=== PATIENT | male | born 1940 | race Caucasian/White ===

== ENCOUNTER → 2016-06-04 | Outpatient (CLI) | payer MEDICARE, BC ==
[2016-06-04 07:57] LABS: ALT 22 U/L (21-72); AST 31 U/L (17-59); Alkaline Phosphatase 88 U/L (38-126); Anion Gap 6 mmol/L; Blood Urea Nitrogen 28 mg/dL (9-20); Calcium 9.2 mg/dL (8.4-10.2); Carbon Dioxide 34 mmol/L (22-30); Chloride 102 mmol/L (98-107); Cholesterol 154 mg/dL (<200); Glucose 86 mg/dL (74-99); HDL Cholesterol 76 mg/dL (40-60); Non-African American GFR(MDRD) >60 (>60 ml/min/1.73 sqM); Potassium 4.5 mmol/L (3.5-5.1); Sodium 142 mmol/L (137-145); Total Bilirubin 0.7 mg/dL (0.2-1.3); Total Protein 6.8 g/dL (6.3-8.2); Triglycerides 65 mg/dL (<150)
== END | disposition home or self-care (01) ==
LOC: LABWHC1 07:05
PROVIDERS: ATTEND Internal Medicine Interventional Cardiology
DX: E78.2 Mixed hyperlipidemia (principal)
CPT/HCPCS: 36415; 80053; 80061

== ENCOUNTER → 2016-08-16 | Outpatient (CLI) | payer MEDICARE, BC ==
--- NOTE | 2016-08-17 00:22 | MR ---
EXAMINATION TYPE: MR cervical spine wo con DATE OF EXAM: 08/16/2016 COMPARISON: NONE HISTORY: Pain, Weakness in left arm and fingers TECHNIQUE: Multiplanar, multisequence images of the cervical spine were acquired. The vertebra have normal alignment. There is narrowing of disc spaces throughout the cervical spine w ith decreased signal. There are small posterior cervical disc herniations at C4-5 C5-6 C6-7. The gin l is narrowed to 8 mm at C6 level. The canal is narrowed to 7 mm at C4-5. Cervical spinal cord shows no edema. Brainstem appears intact. There is no compression fracture. There is mild multilevel hypert rophic facet arthropathy. There is no sign of cervical paraspinal mass. IMPRESSION: Multilevel spondylosis. Small posterior disc herniations from C4 to C7. Mild spinal stenosis as above .
== END | disposition home or self-care (01) ==
LOC: RADMRIMAIN 15:44
PROVIDERS: ATTEND Psychiatry & Neurology Neurology
DX: M48.02 Spinal stenosis, cervical region (principal); M50.123 Cervical disc disorder at C6-C7 level with radiculopathy; M47.22 Other spondylosis with radiculopathy, cervical region
CPT/HCPCS: 72141

== ENCOUNTER → 2016-11-22 | Outpatient (CLI) | payer MEDICARE, BC ==
[2016-11-22 08:02] LABS: Anisocytosis Slight; Basophils % (A) 0 %; CH 31.3; CHCM 32.4; Eosinophils # (A) 0.1 k/uL (0-0.7); Eosinophils % (A) 2 %; HCT 41.9 % (39.0-53.0); HDW 2.89; Luc # (Auto) 0.28; Luc % (Auto) 4; Lymphocytes # (A) 0.8 k/uL (1.0-4.8); Lymphocytes % (A) 12 %; MCHC 30.9 g/dL (31.0-37.0); MCV 97.1 fL (80.0-100.0); Macrocytosis Slight; Mean Platelet Volume 7.4; Monocytes # (A) 0.7 k/uL (0-1.0); Monocytes % (A) 10 %; Neutrophils # (A) 4.9 k/uL (1.3-7.7); Neutrophils % (A) 72 %; RBC 4.32 m/uL (4.30-5.90); RDW 17.1 % (11.5-15.5); WBC 6.8 k/uL (3.8-10.6); WBC (Perox) 7.63
[2016-11-22 08:24] LABS: ALT 38 U/L (21-72); AST 32 U/L (17-59); Alkaline Phosphatase 86 U/L (38-126); Anion Gap 11 mmol/L; Blood Urea Nitrogen 33 mg/dL (9-20); Calcium 9.4 mg/dL (8.4-10.2); Carbon Dioxide 29 mmol/L (22-30); Chloride 101 mmol/L (98-107); Cholesterol 160 mg/dL (<200); Glucose 82 mg/dL (74-99); HDL Cholesterol 68 mg/dL (40-60); Non-African American GFR(MDRD) 50 (>60 ml/min/1.73 sqM); Potassium 4.2 mmol/L (3.5-5.1); Sodium 141 mmol/L (137-145); Total Bilirubin 0.4 mg/dL (0.2-1.3); Total Protein 6.6 g/dL (6.3-8.2)
[2016-11-22 12:27] LABS: Hemoglobin A1C 5.9 % (4.2-6.1)
== END | disposition home or self-care (01) ==
LOC: LABWHC1 07:09
PROVIDERS: ATTEND Internal Medicine Interventional Cardiology
DX: Z00.00 Encounter for general adult medical examination without abnormal findings (principal); E78.2 Mixed hyperlipidemia; I48.91 Unspecified atrial fibrillation; T81.8 Other complications of procedures, not elsewhere classified; I25.10 Atherosclerotic heart disease of native coronary artery without angina pectoris
CPT/HCPCS: 36415; 80053; 80061; 83036; 84439; 84443; 85025

== ENCOUNTER 2016-11-23 07:40 | Inpatient (IN) | payer MEDICARE, BC ==
[2016-11-23] MEDS ORDERED: NITROGLYCERIN OINT 1 INCH/GM PACKET TOPICAL STA (08:10)
[2016-11-23] MEDS ORDERED: ASPIRIN 81 MG PO STA (08:10)
[2016-11-23 08:26] LABS: Anisocytosis Slight; Basophils % (A) 0 %; CH 30.9; CHCM 32.1; Eosinophils # (A) 0.1 k/uL (0-0.7); Eosinophils % (A) 2 %; HCT 40.7 % (39.0-53.0); Hypochromasia Slight; Luc # (Auto) 0.25; Luc % (Auto) 4; Lymphocytes # (A) 0.8 k/uL (1.0-4.8); Lymphocytes % (A) 12 %; MCH 30.8 pg (25.0-35.0); MCHC 31.8 g/dL (31.0-37.0); MCV 96.8 fL (80.0-100.0); Mean Platelet Volume 6.9; Monocytes # (A) 0.6 k/uL (0-1.0); Monocytes % (A) 10 %; Neutrophils # (A) 4.8 k/uL (1.3-7.7); Neutrophils % (A) 73 %; RBC 4.21 m/uL (4.30-5.90); RDW 16.2 % (11.5-15.5); WBC 6.6 k/uL (3.8-10.6); WBC (Perox) 6.85
--- NOTE | 2016-11-23 08:28 | ED ---
General Adult HPI - General Chief complaint: Chest Pain Stated complaint: Chest pain Time Seen by Provider: 11/23/16 07:40 Source: patient, RN notes reviewed Mode of arrival: wheelchair Limitations: no limitations - History of Present Illness Initial comments: This is a 76 her old male presents emergency Department with a past medical history significant for an open wound on the right chest wall since 2007 secondary to a procedure to remove a nodule. Patient has a past medical history significant for hypertension and high cholesterol. Patient comes to the emergency department complaining of chest pain which started last evening right around bedtime he states he comes in waves comes on strong last for a few minutes and then goes away. Patient states is no associated symptoms. Patient denies any radiation of the pain to the neck back or arm. Patient denies any diaphoresis. Patient denies any nausea. Patient denies any shortness of breath or difficulty breathing with the pain. Patient states it did seem to get worse when he got up and walked around but it also did occur at rest as well. Patient denies any recent fever chills or cough. Patient denies any abdominal pain patient denies nausea vomiting or diarrhea. - Related Data Home Medications Medication Instructions Recorded Confirmed Folic Acid 1 mg PO DAILY 01/20/14 11/23/16 Pantoprazole Sodium [Protonix] 40 mg PO QAM 01/20/14 11/23/16 predniSONE 10 mg PO DAILY 01/20/14 11/23/16 Pravastatin Sodium [Pravachol] 40 mg PO DAILY 08/05/14 11/23/16 Albuterol Inhaler [Ventolin Hfa 1 - 2 puff INHALATION RT-Q6H PRN 11/23/16 Inhaler] Ciprofloxacin HCl [Cipro] 250 mg PO Q12HR 11/23/16 11/23/16 Gabapentin [Neurontin] 100 mg PO TID 11/23/16 11/23/16 Lutein 10 mg PO DAILY 11/23/16 11/23/16 Metoprolol Tartrate [Lopressor] 25 mg PO DAILY 11/23/16 11/23/16 Tofacitinib Citrate [Xeljanz Xr] 11 mg PO DAILY 11/23/16 11/23/16 Allergies Allergy/AdvReac Type Severity Reaction Status Date / Time adalimumab [From Humira] Allergy severe flu Verified 11/23/16 08:24 like symptoms etanercept [From Enbrel] Allergy severe flu Verified 11/23/16 08:24 like symptoms inhaler Allergy Rash/Hives Uncoded 11/23/16 07:44 ADHESIVE TAPE AdvReac Unknown Uncoded 11/23/16 07:44 Review of Systems ROS Statement: Those systems with pertinent positive or pertinent negative responses have been documented in the HPI. ROS Other: All systems not noted in ROS Statement are negative. Past Medical History Past Medical History: COPD, Hyperlipidemia, Rheumatoid Arthritis (RA) Additional Past Medical History / Comment(s): Asbestosis, post surgical pneumothorax with a bronchopleural-cutaneous fistula in 2007 treated at [facility]-currently open and packs ns and guaze bid, current daily steroid History of Any Multi-Drug Resistant Organisms: None Reported Past Surgical History: Heart Catheterization, Heart Catheterization With Stent Additional Past Surgical History / Comment(s): lung surgrey and resection of a pulmonary nodule-benign, chest tube insertion with a talc pleurodesis, right lobectomy with complicated the bronco pleurocutaneous fistula, bilateral cataract surgery,left heel spur surgery. Past Anesthesia/Blood Transfusion Reactions: Motion Sickness Date of Last Stent Placement:: Past Psychological History: No Psychological Hx Reported Smoking Status: Never smoker - Past Family History Father Family Medical History: Cancer Additional Family Medical History / Comment(s): hodgkin Brother(s) Family Medical History: Cancer, Myocardial Infarction ([place]) Sister(s) Family Medical History: Cancer, Pulmonary Embolus Additional Family Medical History / Comment(s): ? pulmonay embolism Mother Family Medical History: CVA/TIA Additional Family Medical History / Comment(s): age 92 Son(s) Family Medical History: No Reported History Daughter(s) Family Medical History: No Reported History General Exam - General Exam Comments Initial Comments: GENERAL: Patient is well-developed and well-nourished. Patient is nontoxic and well- hydrated and is in mild distress. ENT: Neck is soft and supple. No significant lymphadenopathy is noted. Oropharynx is clear. Moist mucous membranes. Neck has full range of motion without eliciting any pain. EYES: The sclera were anicteric and conjunctiva were pink and moist. Extraocular movements were intact and pupils were equal round and reactive to light. Eyelids were unremarkable. PULMONARY: Unlabored respirations. Good breath sounds bilaterally. No audible rales rhonchi or wheezing was noted. CARDIOVASCULAR: There is a regular rate and rhythm without any murmurs gallops or rubs. Patient has a bandage on the right lateral chest wall which she states covers an open wound that is been there since 2007 ABDOMEN: Soft and nontender with normal bowel sounds. No palpable organomegaly was noted. There is no palpable pulsatile mass. SKIN: Skin is clear with no lesions or rashes and otherwise unremarkable. NEUROLOGIC: Patient is alert and oriented x3. Cranial nerves II through XII are grossly intact. Motor and sensory are also intact. Normal speech, volume and content. Symmetrical smile. MUSCULOSKELETAL: Normal extremities with adequate strength and full range of motion. No lower extremity swelling or edema. No calf tenderness. LYMPHATICS: No significant lymphadenopathy is noted PSYCHIATRIC: Normal psychiatric evaluation. Normal interpersonal interactions appears functionally intact in deals appropriately with others. No signs of depression. No signs of anxiety. Limitations: no limitations Course Vital Signs 11/23/16 11/23/16 11/23/16 07:41 08:06 08:36 Temperature 97.9 F Pulse Rate 104 H 92 81 Respiratory 20 18 18 Rate Blood Pressure 138/85 138/102 137/103 O2 Sat by Pulse 100 95 Oximetry 11/23/16 09:32 Temperature Pulse Rate 94 Respiratory 19 Rate Blood Pressure 148/99 O2 Sat by Pulse 94 L Oximetry Medical Decision Making - Medical Decision Making EKG shows atrial fibrillation 93 bpm QRS is 90 QT interval 368 QTC is 457. Patient's EKG shows no ST segment elevation I compared the EKG to an old EKG I see no acute abnormalities. Chest x-ray shows no acute abnormality. Patient does show chronic pleural parenchymal changes and underlying pulmonary fibrosis which is been seen previously. New. Patient's troponin was mildly elevated so started the patient on troponin. Patient continue to get episodes of chest pain while in the emergency department. I spoke with Dr. jolly he agreed to admit the patient admitted the patient I consult cardiology. I continued heparin Nitropaste and aspirin on the floor. - Lab Data Result diagrams: 11/23/16 08:00 11/23/16 08:00 Lab Results 11/23/16 11/23/16 11/23/16 Range/Units 08:00 08:00 08:00 WBC 6.6 (3.8-10.6) k/uL RBC 4.21 L (4.30-5.90) m/uL Hgb 13.0 (13.0-17.5) gm/dL Hct 40.7 (39.0-53.0) % MCV 96.8 (80.0-100.0) fL MCH 30.8 (25.0-35.0) pg MCHC 31.8 (31.0-37.0) g/dL RDW 16.2 H (11.5-15.5) % Plt Count 253 (150-450) k/uL Neutrophils % 73 % Lymphocytes % 12 % Monocytes % 10 % Eosinophils % 2 % Basophils % 0 % Neutrophils # 4.8 (1.3-7.7) k/uL Lymphocytes # 0.8 L (1.0-4.8) k/uL Monocytes # 0.6 (0-1.0) k/uL Eosinophils # 0.1 (0-0.7) k/uL Basophils # 0.0 (0-0.2) k/uL Hypochromasia Slight Anisocytosis Slight PT (9.0-12.0) sec INR (<1.2) APTT (22.0-30.0) sec Sodium 142 (137-145) mmol/L Potassium 4.2 (3.5-5.1) mmol/L Chloride 104 (98-107) mmol/L Carbon Dioxide 27 (22-30) mmol/L Anion Gap 11 mmol/L BUN 27 H (9-20) mg/dL Creatinine 1.16 (0.66-1.25) mg/dL Est GFR (MDRD) Af Amer >60 (>60 ml/min/1.73 sqM) Est GFR (MDRD) Non-Af >60 (>60 ml/min/1.73 sqM) Glucose 85 (74-99) mg/dL Calcium 9.1 (8.4-10.2) mg/dL Magnesium 2.1 (1.6-2.3) mg/dL Total Bilirubin 0.4 (0.2-1.3) mg/dL AST 30 (17-59) U/L ALT 33 (21-72) U/L Alkaline Phosphatase 82 (38-126) U/L Total Creatine Kinase 127 (55-170) U/L CK-MB (CK-2) 2.8 H* (0.0-2.4) ng/mL CK-MB (CK-2) Rel Index 2.2 Troponin I 0.079 H* (0.000-0.034) ng/mL Total Protein 6.3 (6.3-8.2) g/dL Albumin 3.3 L (3.5-5.0) g/dL 11/23/16 Range/Units 08:00 WBC (3.8-10.6) k/uL RBC (4.30-5.90) m/uL Hgb (13.0-17.5) gm/dL Hct (39.0-53.0) % MCV (80.0-100.0) fL MCH (25.0-35.0) pg MCHC (31.0-37.0) g/dL RDW (11.5-15.5) % Plt Count (150-450) k/uL Neutrophils % % Lymphocytes % % Monocytes % % Eosinophils % % Basophils % % Neutrophils # (1.3-7.7) k/uL Lymphocytes # (1.0-4.8) k/uL Monocytes # (0-1.0) k/uL Eosinophils # (0-0.7) k/uL Basophils # (0-0.2) k/uL Hypochromasia Anisocytosis PT 9.8 (9.0-12.0) sec INR 1.0 (<1.2) APTT 24.0 (22.0-30.0) sec Sodium (137-145) mmol/L Potassium (3.5-5.1) mmol/L Chloride (98-107) mmol/L Carbon Dioxide (22-30) mmol/L Anion Gap mmol/L BUN (9-20) mg/dL Creatinine (0.66-1.25) mg/dL Est GFR (MDRD) Af Amer (>60 ml/min/1.73 sqM) Est GFR (MDRD) Non-Af (>60 ml/min/1.73 sqM) Glucose (74-99) mg/dL Calcium (8.4-10.2) mg/dL Magnesium (1.6-2.3) mg/dL Total Bilirubin (0.2-1.3) mg/dL AST (17-59) U/L ALT (21-72) U/L Alkaline Phosphatase (38-126) U/L Total Creatine Kinase (55-170) U/L CK-MB (CK-2) (0.0-2.4) ng/mL CK-MB (CK-2) Rel Index Troponin I (0.000-0.034) ng/mL Total Protein (6.3-8.2) g/dL Albumin (3.5-5.0) g/dL Critical Care Time Critical Care Time: Yes Total Critical Care Time: 35 Disposition Clinical Impression: Unstable angina pectoris Disposition: ADMITTED IP TO THIS HOSP Referrals: Pipo Zhou MD [Primary Care Provider] - 1-2 days Time of Disposition: 09:34
[2016-11-23 08:30] LABS: ALT 33 U/L (21-72); AST 30 U/L (17-59); Alkaline Phosphatase 82 U/L (38-126); Anion Gap 11 mmol/L; Blood Urea Nitrogen 27 mg/dL (9-20); Calcium 9.1 mg/dL (8.4-10.2); Carbon Dioxide 27 mmol/L (22-30); Chloride 104 mmol/L (98-107); Glucose 85 mg/dL (74-99); Magnesium 2.1 mg/dL (1.6-2.3); Non-African American GFR(MDRD) >60 (>60 ml/min/1.73 sqM); Potassium 4.2 mmol/L (3.5-5.1); Sodium 142 mmol/L (137-145); Total Bilirubin 0.4 mg/dL (0.2-1.3); Total Protein 6.3 g/dL (6.3-8.2)
[2016-11-23 08:36] LABS: Prothrombin Time 9.8 sec (9.0-12.0)
--- NOTE | 2016-11-23 08:36 | XR ---
EXAMINATION TYPE: XR chest 2V DATE OF EXAM: 11/23/2016 COMPARISON: 11/21/2015 TECHNIQUE: PA and lateral views submitted. HISTORY: Chest pain FINDINGS: Coarsened interstitium seen with pleural-based thickening and areas of subsegmental consolidation or pleural effusion. Scoliotic curvature with degenerative changes spine. Stable right apical pleural-ba sed thickening. Arthropathy of the shoulders. Suggestion of small clips in the soft tissues along the right lateral chest wall. Previous surgery suggested. Vague nodularity left upper lobe likely relate d to pleural plaque. IMPRESSION: 1. Stable chronic pleural-parenchymal changes. Underlying pulmonary fibrosis suspected. Pleural plaqu e or asbestos related disease in the differential diagnosis. Could not exclude vague infiltrate in th e lingular segment left upper lobe. 2. 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
[2016-11-23 08:55] LABS: Creatine Kinase MB 2.8 ng/mL (0.0-2.4); Troponin I 0.079 ng/mL (0.000-0.034)
[2016-11-23] MEDS ORDERED: HEPARIN SODIUM,PORCINE 5,000 UNIT/ML 1 ML VIAL IV ONE (09:04)
[2016-11-23] MEDS ORDERED: SODIUM CHLORIDE 0.9% 1,000 ML IV SCH (09:15)
[2016-11-23] MEDS ORDERED: HEPARIN SODIUM,PORCINE/D5W PMX 25,000 UNIT in DEXTROSE/WATER 1 500ML.BAG IV SCH (09:15)
[2016-11-23] MEDS ORDERED: NITROGLYCERIN SL TABS 0.4 MG TAB SUBLINGUAL PRN (09:36)
[2016-11-23 10:31] VITALS: BMI 22.6
[2016-11-23] MEDS ORDERED: ALBUTEROL NEBULIZED 2.5 MG/3 ML INHALATION PRN (11:49)
--- NOTE | 2016-11-23 13:07 | P.PN ---
Progress Note - Text This is an addendum to the dictated cardiology consultation. The patient has a known history of CAD, post stenting of the RCA in 2015, history of paroxysmal atrial fibrillation, history of rheumatoid arthritis and rheumatoid lung with bronchopleural fistula who presents with symptoms of indigestion. He was noted to be in atrial fibrillation on presentation. He feels that the ingestion resolved. He has no change in his breathing pattern, has chronic mild to moderate dyspnea on exertion without any progression. In the past he could not tolerate anticoagulation because of bleeding from his fistula. His systolic function has been normal. On his physical examination he has no evidence of lung congestion and he is in atrial fibrillation. His troponin is minimally elevated and his EKG shows no acute ST segment changes. It is possible that the troponin abnormality is related to a type II event from the atrial fibrillation although the possibility of progression of disease cannot be excluded. I discussed with the patient both options of proceeding with coronary angiography versus observation pending the rest of his enzymes and his symptoms. He is in favor of observation. If he has any increase in his troponin or further symptoms then we will proceed with cardiac catheterization. In the meantime I will obtain an echocardiogram and depending on his progress further recommendations will be made. Thank you for this consult we will follow with you.
[2016-11-23] MEDS: CIPROFLOXACIN HCL 250 MG TAB PO SCH ×3 (14:00→21:22)
[2016-11-23] MEDS: METOPROLOL TARTRATE 25 MG TAB PO SCH ×2 (14:00→15:46)
[2016-11-23] MEDS: predniSONE 10 MG TAB PO SCH (14:00)
[2016-11-23] MEDS: NITROGLYCERIN OINT 1 INCH/GM PACKET TOPICAL SCH ×3 (14:01→23:28)
[2016-11-23 14:55] LABS: Creatine Kinase MB 2.7 ng/mL (0.0-2.4)
[2016-11-23] MEDS ORDERED: IPRATROPIUM-ALBUTEROL 3 ML NEB INHALATION PRN (14:55)
[2016-11-23 14:57] LABS: Troponin I 0.057 ng/mL (0.000-0.034)
--- NOTE | 2016-11-23 14:57 | P.HPIM ---
History of Present Illness H&P Date: 11/23/16 Chief Complaint: substernal chest pressure his is a 74-year-old gentleman one of Dr. Zhou with a previous medical history significant for long-standing rheumatoid arthritis currently on tofacitinib , prednisone , hyperlipidemia, chronic obstructive pulmonary disease , asbestos exposure, history of pulmonary nodule in the past status post right lobectomy at the 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 He was seen in [facility] May/2014 when he was found to have an atrial fibrillation with rapid ventricular response, he was found in an acute heart failure top of his chronic lung condition and Patient underwent cardiac cath and stent of RCA with Dr. Gibson on 06/08. Patient was found to be in atrial fibrillation and was started on amiodarone and well as heparin drip, bridged to coumadin is but patient started to have bleeding through the broncho-cutaneous fistula before discontinuing the anticoagulation. Patient was seen in the ED this time with complaints of central arm chest pressure feels like a heartburn, intubated and corrected nonradiating and not associated with worsening of his baseline shortness of breath. Patient denies any diaphoresis, denies any nausea. Patient states he does get short of breath what walking couple of steps but has been suffering from shortness of breath for many years. He does have atrial fibrillation but is not on anticoagulation due to the history of bleeding from the fistula. He was also treated for pneumonia with antibiotics and steroids a few weeks ago and her urinary tract infection following the pneumonia for which patient was taking ciprofloxacin. Patient also has an open broncho-cutaneous fistula which they dressed 2 times a day. Patient uses home oxygen on exertion. White count is elevated ED suggested a pulse rate of 104, blood pressure 138/85. EKG was done which suggested atrial fibrillation with no ST or T-wave changes. Chest x-ray O was positive for chronic pleural parenchymal changes and underlying pulmonary fibrosis from previous history of asbestosis exposure. Troponin was elevated. Patient was admitted for evaluation by cardiology for elevated troponin and history of coronary artery disease with stenting in the past. Review of Systems Constitutional: Reports fatigue, Denies anorexia, Denies chills, Denies fever, Denies poor appetite Eyes: denies bulging eye, denies diplopia Ears, nose, mouth and throat: Denies dental pain, Denies dysphagia, Denies epistaxis, Denies headache, Denies neck lump, Denies nose pain, Denies odynophagia, Denies post-nasal drip Cardiovascular: Reports decreased exercise tolerance, Reports irregular heart beat, Reports shortness of breath, Denies edema, Denies high blood pressure, Denies leg edema, Denies lightheadedness, Denies orthopnea, Denies paroxysmal nocturnal dyspnea Respiratory: Reports home oxygen, Denies cough, Denies cough with sputum Gastrointestinal: Denies abdominal pain, Denies bloating, Denies BRBPR, Denies change in bowel habits, Denies hematemesis, Denies hematochezia, Denies nausea, Denies vomiting Genitourinary: Denies nocturia, Denies urinary frequency, Denies urinary hesitancy Musculoskeletal: Denies low back pain, Denies muscle cramps Musculoskeletal: absent: ankle pain, ankle swelling, foot pain, hip swelling, knee swelling Integumentary: Denies rash, Denies unusual bruising, Denies wounds Neurological: Denies memory loss, Denies numbness, Denies paralysis, Denies paresthesias, Denies seizures, Denies tremors, Denies vertigo, Denies weakness Psychiatric: Denies anxiety, Denies depression, Denies hopelessness Endocrine: Reports palpitations, Denies fatigue, Denies flushing, Denies polyuria Past Medical History Past Medical History: COPD, Hyperlipidemia, Rheumatoid Arthritis (RA) Additional Past Medical History / Comment(s): Asbestosis, post surgical pneumothorax with a bronchopleural-cutaneous fistula in [address] [facility]-currently open and packs ns and guaze bid, current daily steroid History of Any Multi-Drug Resistant Organisms: None Reported Past Surgical History: Heart Catheterization, Heart Catheterization With Stent Additional Past Surgical History / Comment(s): lung surgrey and resection of a pulmonary nodule-benign, chest tube insertion with a talc pleurodesis, right lobectomy with complicated the bronco pleurocutaneous fistula, bilateral cataract surgery,left heel spur surgery. 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 - Past Family History Father Family Medical History: Cancer Additional Family Medical History / Comment(s): hodgkin Brother(s) Family Medical History: Cancer, Myocardial Infarction ([place]) Sister(s) Family Medical History: Cancer, Pulmonary Embolus Additional Family Medical History / Comment(s): ? pulmonay embolism Mother Family Medical History: CVA/TIA Additional Family Medical History / Comment(s): age 92 Son(s) Family Medical History: No Reported History Daughter(s) Family Medical History: No Reported History Medications and Allergies Home Medications Medication Instructions Recorded Confirmed Type Folic Acid 1 mg PO DAILY 01/20/14 11/23/16 History Pantoprazole Sodium [Protonix] 40 mg PO QAM 01/20/14 11/23/16 History predniSONE 10 mg PO DAILY 01/20/14 11/23/16 History Pravastatin Sodium [Pravachol] 40 mg PO DAILY 08/05/14 11/23/16 History Albuterol Inhaler [Ventolin Hfa 1 - 2 puff INHALATION RT-Q6H PRN 11/23/16 History Inhaler] Ciprofloxacin HCl [Cipro] 250 mg PO Q12HR 11/23/16 11/23/16 History Gabapentin [Neurontin] 100 mg PO TID 11/23/16 11/23/16 History Lutein 10 mg PO DAILY 11/23/16 11/23/16 History Metoprolol Tartrate [Lopressor] 25 mg PO DAILY 11/23/16 11/23/16 History Tofacitinib Citrate [Xeljanz Xr] 11 mg PO DAILY 11/23/16 11/23/16 History Allergies Allergy/AdvReac Type Severity Reaction Status Date / Time adalimumab [From Humira] Allergy severe flu Verified 11/23/16 08:24 like symptoms etanercept [From Enbrel] Allergy severe flu Verified 11/23/16 08:24 like symptoms inhaler Allergy Rash/Hives Uncoded 11/23/16 07:44 ADHESIVE TAPE AdvReac Unknown Uncoded 11/23/16 07:44 Physical Exam Vitals: Vital Signs Temp Pulse Pulse Resp BP BP Pulse Ox 11/23/16 12:00 91 20 11/23/16 11:57 96.9 F L 91 20 138/94 91 L 11/23/16 09:55 97.8 F 85 16 148/99 95 11/23/16 09:54 96.9 F L 97 20 138/94 92 L 11/23/16 09:32 94 19 148/99 94 L 11/23/16 08:36 81 18 137/103 95 11/23/16 08:06 92 18 138/102 100 11/23/16 07:41 97.9 F 104 H 20 138/85 Intake and Output 11/22/16 11/23/16 11/23/16 22:59 06:59 14:59 Intake Total 600 Balance 600 Intake: Intake, IV Titration 240 Amount Sodium Chloride 0.9% 1, 240 000 ml @ 20 mls/hr IV . Q24H [facility] Rx#:[id number] Oral 360 Other: Voiding Method Toilet Weight 71.5 kg Patient Weight 11/24/16 06:59 Weight 71.5 kg - Constitutional General appearance: average body habitus, mild distress - EENT Eyes: anicteric sclerae, EOMI, PERRLA ENT: normal oropharynx - Neck Neck: no lymphadenopathy, normal ROM Carotids: negative: upstroke normal - Respiratory Respiratory: bilateral: rhonchi, negative: CTA, diminished, dullness, rales, prolonged expiration, prolonged inspiration - Cardiovascular Rhythm: irregularly irregular Heart sounds: normal: S1, S2 dorsalis pedis Peripheral Pulses: absent: Normal - Gastrointestinal General gastrointestinal: no distended, normal bowel sounds, soft, no tenderness - Integumentary Integumentary: rash (bronchocutaneous fistla on the right side of the back below the scapular blade ) - Musculoskeletal Musculoskeletal: strength equal bilaterally - Psychiatric Psychiatric: A&O x's 3 Results CBC & Chem 7: 11/23/16 08:00 11/23/16 08:00 Labs: Abnormal Lab Results - Last 24 Hours (Table) 11/23/16 11/23/16 11/23/16 Range/Units 08:00 08:00 08:00 RBC 4.21 L (4.30-5.90) m/uL RDW 16.2 H (11.5-15.5) % Lymphocytes # 0.8 L (1.0-4.8) k/uL BUN 27 H (9-20) mg/dL CK-MB (CK-2) 2.8 H* (0.0-2.4) ng/mL Troponin I 0.079 H* (0.000-0.034) ng/mL Albumin 3.3 L (3.5-5.0) g/dL Thrombosis Risk Factor Assmnt - DVT/VTE Prophylaxis DVT/VTE Prophylaxis: Pharmacologic Prophylaxis ordered (on heparin drip ) - Choose All That Apply Each Factor Represents 1 point: Abnormal pulmonary function (COPD) Each Risk Factor Represents 3 Points: Age 75 years or older Thrombosis Risk Factor Assessment Total Risk Factor Score: 4 Thrombosis Risk Factor Assessment Level: Moderate Risk Assessment and Plan Plan: 1. Paroxysmal atrial fibrillation with rapid ventricular response, patient will be started on heparin drip, aspirin 81 mg orally once every day, continue metoprolol 25 mg orally once day, patient will need to be on chronic anticoagulation at this point in time for CVA prevention. We will get echocardiogram for evaluation of LV function, we will obtain cardiology consultation 2. Troponin leak thought to be due to A. fib with rapid ventricular response, we will keep the patient on aspirin, pravastatin 40 mg orally at bedtime, metoprolol 25 mg orally once a day , we will obtain 2-D echogram to evaluate LV function at this time. History of RCA stent in 2014 if patient's troponin continues to rise stated patient is going to get cardiac catheterization done tomorrow morning keep patient nothing by mouth after midnight for possible procedure tomorrow. Troponin every 63, 3. Long standing history of rheumatoid arthritis since 2006 currently on immunosuppressive medicines in the form of tofacitinib, prednisone, with a possibility of opportunistic infection as well as rheumatic lung, continue ciprofloxacin 250 mg twice a day as outpatient treatment was stopped 4. History of hyperlipidemia we will continue the patient on Pravachol 40 mg orally at bedtime. 5. History of chronic obstructive pulmonary disease/asbestos exposure we will continue current nebulized treatment . 6. History of the pulmonary nodule in the past status post right lobectomy with complicating bronchopleural cutaneous fistula appears to be stable at this time. 7. History of urinary tract infection- patient on ciprofloxacin for possible urinary infection continue treatment urinalysis ordered. If urine is clear, we' ll discontinue the antibiotics 7. GI prophylaxis will continue with current PPI. 8. DVT prophylaxis currently on heparin drip 9. Assessment length of stay 3 days.
[2016-11-23 15:39] LABS: Appearance,Urine Clear (Clear); Bilirubin,Urine Negative (Negative); Glucose,Urine (UA) Negative (Negative); Ketones,Urine Negative (Negative); Leukocyte Esterase,Urine Large (Negative); Mucus,Urine Rare /hpf; Nitrite,Urine Negative (Negative); PH, Urine 5.5 (5.0-8.0); Particle Count 3108; Protein,Urine Trace (Negative); RBC,Urine 1 /hpf (0-5); Specific Gravity,Urine 1.019 (1.001-1.035); Squamous Epithelial Cell,Urine <1 /hpf (0-4); UA Billing (MACRO vs. MICRO) MICRO; Urobilinogen,Urine <2.0 mg/dL (<2.0); WBC,Urine 17 /hpf (0-5)
[2016-11-23] MEDS: GABAPENTIN 100 MG CAP PO SCH ×2 (15:46→21:18)
--- NOTE | 2016-11-23 16:23 | ECHOF ---
Referral Reason:chest pain MEASUREMENTS -------- HEIGHT: 180.3 cm WEIGHT: 71.2 kg BP: 105/75 IVSd: 1.3 cm (0.6 - 1.1) LVIDd: 3.3 cm (3.9 - 5.3) LVPWd: 1.4 cm (0.6 - 1.1) IVSs: 1.6 cm LVIDs: 2.6 cm LVPWs: 1.5 cm Ao Diam: 3.0 cm (2.0 - 3.7) AV Cusp: 0.8 cm (1.5 - 2.6) LA Diam: 4.0 cm (2.7 - 3.8) RAP: 5.00 mmHg RVSP: 33.01 mmHg FINDINGS -------- Atrial fibrillation. This was a technically good study. The left ventricular size is normal. There is mild concentric left ventricular hypertrophy. Overall left ventricular systolic function is normal with, an EF between 55 - 60 %. The right ventricle is normal in size and function. The left atrial size is normal. The right atrium is normal in size. Aortic valve is trileaflet and is moderately thickened. There is mild aortic valve sclerosis. The mitral valve leaflets are mildly thickened. Mild mitral regurgitation is present. Mild tricuspid regurgitation present. The right ventricular systolic pressure, as measured by Doppler, is 33.01mmHg. Pulmonic valve appears structurally normal. The aortic root size is normal. The pericardium is normal. CONCLUSIONS -------- 1. Atrial fibrillation. 2. There is mild aortic valve sclerosis. 3. The mitral valve leaflets are mildly thickened. 4. Mild mitral regurgitation is present. 5. Mild tricuspid regurgitation present. 6. The right ventricular systolic pressure, as measured by Doppler, is 33.01mmHg. 7. Pulmonic valve appears structurally normal. 8. The aortic root size is normal. 9. The pericardium is normal. 10. This was a technically good study. 11. The left ventricular size is normal. 12. There is mild concentric left ventricular hypertrophy. 13. Overall left ventricular systolic function is normal with, an EF between 55 - 60 %. 14. The right ventricle is normal in size and function. 15. The left atrial size is normal. 16. The right atrium is normal in size. 17. Aortic valve is trileaflet and is moderately thickened. FIREBOAT OPERATOR: Rika Tineo RDCS
[2016-11-23] MEDS ORDERED: ACETAMINOPHEN TAB 325 MG TAB PO PRN (20:40)
[2016-11-23 20:49] LABS: Creatine Kinase MB 2.3 ng/mL (0.0-2.4)
[2016-11-23 20:50] LABS: Troponin I 0.038 ng/mL (0.000-0.034)
[2016-11-23] MEDS ORDERED: PRAVASTATIN SODIUM 40 MG TAB PO SCH (21:00)
[2016-11-24] MEDS: NITROGLYCERIN OINT 1 INCH/GM PACKET TOPICAL SCH (06:08)
[2016-11-24 07:00] LABS: Cholesterol 147 mg/dL (<200); HDL Cholesterol 64 mg/dL (40-60)
[2016-11-24] MEDS: GABAPENTIN 100 MG CAP PO SCH ×2 (07:38→13:34)
[2016-11-24] MEDS: METOPROLOL TARTRATE 25 MG TAB PO SCH (07:39)
[2016-11-24] MEDS: CIPROFLOXACIN HCL 250 MG TAB PO SCH (07:39)
[2016-11-24] MEDS: predniSONE 10 MG TAB PO SCH (07:39)
[2016-11-24] MEDS ORDERED: ASPIRIN 81 MG PO SCH (09:00)
[2016-11-24] MEDS ORDERED: ASPIRIN 325 MG TAB PO SCH (09:00)
[2016-11-24] MEDS ORDERED: PANTOPRAZOLE 40 MG TABLET PO SCH (09:00)
[2016-11-24] MEDS ORDERED: ISOSORBIDE MONONITRATE ER 30 MG TAB.ER.24H PO SCH (09:15)
[2016-11-24] MEDS ORDERED: METOPROLOL TARTRATE 25 MG TAB PO SCH (09:15)
--- NOTE | 2016-11-24 09:45 | PN ---
PROGRESS NOTE Mr. 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 His troponin was minimally elevated. He is feeling well since yesterday. He has no chest discomfort. His breathing is stable. He has chronic dyspnea on exertion. He has no dizziness, palpitation. No syncope. No clear PND nor orthopnea. No significant peripheral edema. He continues to be on IV heparin, aspirin once a day, metoprolol tartrate 25 mg daily, nitro paste, pravastatin 4 mg daily, prednisone 10 mg daily. PHYSICAL EXAMINATION: Blood pressure 127/90 with a heart in 90s. Lungs is scattered rhonchi, dry. HEART: Irregular regular S1, S2. No S3. No rub. ABDOMEN: Soft, nontender. EXTREMITIES: No edema. LAB DATA: Revealed a troponin of 0.057 and 0.038. His cholesterol 147, LDL of 62. BUN and creatinine 27 and 1.16, potassium 4.2. On the rhythm strip he is in atrial fibrillation. IMPRESSION: 1. Atrial fibrillation, paroxysmal. Patient has persistent atrial fibrillation at this time, not anticoagulated because of prior bleeding. 2. History of coronary artery disease. 3. Minimal elevation of troponin could be related to the atrial fibrillation. No clear evidence to suggest a primary ischemic event, most likely related to a type 2 event. 4. History of bronchopleural fistula. RECOMMENDATIONS: Patient had an echocardiogram yesterday that revealed a preserved ventricular size and systolic function with mild mitral and tricuspid regurgitation. He is in favor of continued conservative treatment. I will stop the heparin, add nitrates to his regimen, increase his beta cesar. If he remains stable, I would expect he should be able to be discharged home soon and follow up as an outpatient. MMODL / IJN: [id number] /
[2016-11-24] MEDS ORDERED: FOLIC ACID 1 MG TAB PO SCH (12:00)
[2016-11-24 13:29] VITALS: BP 134/83; PULSE 96; RESP 20; TEMP 97
--- NOTE | 2016-11-24 18:28 | P.DS ---
Providers Date of admission: 11/23/16 09:36 Expected date of discharge: 11/24/16 Attending physician: Kylee Michael MD Consults: 11/23/16 09:36 Consult Physician Urgent Consulting Provider: [facility] Consult Reason/Comments: Unstable angina Do you want consulting provider notified?: Yes 11/23/16 17:16 Consult Physician Urgent Consulting Provider: Pipo Barragan Consult Reason/Comments: CHRONIC WOUND (R) POSTERIOR CHEST WALL Do you want consulting provider notified?: Yes Primary care physician: [facility] Course: his is a 74-year-old gentleman one of Dr. 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 He was seen in [facility] May/2014 when he was found to have an atrial fibrillation with rapid ventricular response, he was found in an acute heart failure top of his chronic lung condition and Patient underwent cardiac cath and stent of RCA with Dr. Gibson on 06/08. Patient was found to be in atrial fibrillation and was started on amiodarone and well as heparin drip, bridged to coumadin is but patient started to have bleeding through the broncho-cutaneous fistula before discontinuing the anticoagulation. Patient was seen in the ED this time with complaints of central arm chest pressure feels like a heartburn, intubated and corrected nonradiating and not associated with worsening of his baseline shortness of breath. Patient denies any diaphoresis, denies any nausea. Patient states he does get short of breath what walking couple of steps but has been suffering from shortness of breath for many years. He does have atrial fibrillation but is not on anticoagulation due to the history of bleeding from the fistula. He was also treated for pneumonia with antibiotics and steroids a few weeks ago and her urinary tract infection following the pneumonia for which patient was taking ciprofloxacin. Patient also has an open broncho-cutaneous fistula which they dressed 2 times a day. Patient uses home oxygen on exertion. White count is elevated ED suggested a pulse rate of 104, blood pressure 138/85. EKG was done which suggested atrial fibrillation with no ST or T-wave changes. Chest x-ray O was positive for chronic pleural parenchymal changes and underlying pulmonary fibrosis from previous history of asbestosis exposure. Troponin was elevated. Patient was admitted for evaluation by cardiology for elevated troponin and history of coronary artery disease with stenting in the past. Patient was seen in consultation by Dr. Barragan as well as by cardiology the decision was made to admit the patient go home as the patient chest pain does not appear to be cardiac at this point in time, he is to follow-up with Dr. Barragan as an outpatient one week for new ways of packing and taking care of his fistula of his chest as well as follow-up with his primary care physician Dr. Zhou as an outpatient next week. Final diagnoses: 1. Paroxysmal atrial fibrillation with rapid ventricular response. 2. Troponin leak thought to be due to A. fib with rapid ventricular response. 3. Long standing history of rheumatoid arthritis since 2005. 4. History of hyperlipidemia . 5. History of chronic obstructive pulmonary disease/asbestos exposure. 6. History of the pulmonary nodule in the past status post right lobectomy with complicating bronchopleural cutaneous fistula. 7. History of urinary tract infection. Plan - Discharge Summary New Discharge Prescriptions: Continue predniSONE 10 mg PO DAILY Pantoprazole Sodium [Protonix] 40 mg PO QAM Folic Acid 1 mg PO DAILY Pravastatin Sodium [Pravachol] 40 mg PO DAILY Metoprolol Tartrate [Lopressor] 25 mg PO DAILY Ciprofloxacin HCl [Cipro] 250 mg PO Q12HR Albuterol Inhaler [Ventolin Hfa Inhaler] 1 - 2 puff INHALATION RT-Q6H PRN PRN Reason: Shortness Of Breath Lutein 10 mg PO DAILY Tofacitinib Citrate [Xeljanz Xr] 11 mg PO DAILY Discontinued Gabapentin [Neurontin] 100 mg PO TID Discharge Medication List Folic Acid 1 mg PO DAILY 01/20/14 [History] Pantoprazole Sodium [Protonix] 40 mg PO QAM 01/20/14 [History] predniSONE 10 mg PO DAILY 01/20/14 [History] Pravastatin Sodium [Pravachol] 40 mg PO DAILY 08/05/14 [History] Albuterol Inhaler [Ventolin Hfa Inhaler] 1 - 2 puff INHALATION RT-Q6H PRN [History] Ciprofloxacin HCl [Cipro] 250 mg PO Q12HR 11/23/16 [History] Lutein 10 mg PO DAILY 11/23/16 [History] Metoprolol Tartrate [Lopressor] 25 mg PO DAILY 11/23/16 [History] Tofacitinib Citrate [Xeljanz Xr] 11 mg PO DAILY 11/23/16 [History] Follow up Appointment(s)/Referral(s): Aminah Gibson MD [STAFF PHYSICIAN] - 2 Weeks (Offices are closed please call to make an apointment.) Pipo Barragan MD [STAFF PHYSICIAN] - 1 Week (Offices are closed please call to make an apointment.) Pipo Zhou MD [Primary Care Provider] - 1-2 days (Offices are closed please call to make an apointment.) Patient Instructions/Handouts: Atrial Fibrillation (DC), Acute Coronary Syndrome (DC) Discharge Disposition: HOME SELF-CARE
--- NOTE | 2016-11-25 00:03 | P.CONS ---
History of Present Illness - Reason for Consult Consult date: 11/24/16 - Chief Complaint chest pain - History of Present Illness Srinivasa 76-year-old male presents to emergency center with complaints of chest pain. This pleasant gentleman has a very extensive past medical history. He had a second lung nodule that underwent resection. Due to his asbestosis there was significant complications after the procedure. He had up with the significant bronchopulmonary fistula. Despite multiple surgical interventions including a myocutaneous flap he continues to have a chronic opening in this area. The packet twice a day with saline moistened gauze. Consult is for further intervention. The patient's chest pain is improved. No significant cardiac event was noted. He generally is feeling well at this point in time looks forward to going home. Review of Systems HEENT:Denies headache or acute visual change. Denies sinus or mouth discomforts. Denies neck stiffness or pain. Denies significant oral cavity pain. Denies difficulty on swallowing. Lungs: Denies significant shortness of breath, cough, sputum production, or hemoptysis.as per the HPI has the chronic br Cardiovascular: Denies significant shortness of breath, chest pain, chest wall pain, orthopnea, dyspnea on exertion, syncope Gastrointestinal:Denies nausea, vomiting, diarrhea, constipation, hematemesis, melena, hematochezia. No no significant change of bowel habit noticed. Musculoskeletal: denies significant myalgias or arthralgias. No new joint swelling. Denies new back pain. Skin: Denies new rash or lesions. No new ulcers or wounds are related.. Neuro: Denies headache or visual change. Denies any new onset weakness or difficulty with ambulation. Denies falls or seizures. Psychiatric:Denies anxiety or depression. Endocrine: Denies significant fatigue, denies significant weight loss or weight gain. Past Medical History Past Medical History: COPD, Hyperlipidemia, Rheumatoid Arthritis (RA) Additional Past Medical History / Comment(s): Asbestosis, post surgical pneumothorax with a bronchopleural-cutaneous fistula in 2007 treated at [facility]-currently open and packs ns and guaze bid, current daily steroid History of Any Multi-Drug Resistant Organisms: None Reported Past Surgical History: Heart Catheterization, Heart Catheterization With Stent Additional Past Surgical History / Comment(s): lung surgrey and resection of a pulmonary nodule-benign, chest tube insertion with a talc pleurodesis, right lobectomy with complicated the bronco pleurocutaneous fistula, bilateral cataract surgery,left heel spur surgery. Past Anesthesia/Blood Transfusion Reactions: Motion Sickness Date of Last Stent Placement:: Past Psychological History: No Psychological Hx Reported Additional Psychological History / Comment(s): lives with the in the family. 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 No experience. no international travel. 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 - Past Family History Father Family Medical History: Cancer Additional Family Medical History / Comment(s): hodgkin Brother(s) Family Medical History: Cancer, Myocardial Infarction ([place]) Sister(s) Family Medical History: Cancer, Pulmonary Embolus Additional Family Medical History / Comment(s): ? pulmonay embolism Mother Family Medical History: CVA/TIA Additional Family Medical History / Comment(s): age 92 Son(s) Family Medical History: No Reported History Daughter(s) Family Medical History: No Reported History Medications and Allergies Home Medications Medication Instructions Recorded Confirmed Type Folic Acid 1 mg PO DAILY 01/20/14 11/23/16 History Pantoprazole Sodium [Protonix] 40 mg PO QAM 01/20/14 11/23/16 History predniSONE 10 mg PO DAILY 01/20/14 11/23/16 History Pravastatin Sodium [Pravachol] 40 mg PO DAILY 08/05/14 11/23/16 History Albuterol Inhaler [Ventolin Hfa 1 - 2 puff INHALATION RT-Q6H PRN 11/23/16 History Inhaler] Ciprofloxacin HCl [Cipro] 250 mg PO Q12HR 11/23/16 11/23/16 History Lutein 10 mg PO DAILY 11/23/16 11/23/16 History Metoprolol Tartrate [Lopressor] 25 mg PO DAILY 11/23/16 11/23/16 History Tofacitinib Citrate [Xeljanz Xr] 11 mg PO DAILY 10/06/17 10/06/17 History Allergies Allergy/AdvReac Type Severity Reaction Status Date / Time adalimumab [From Humira] Allergy severe flu Verified 11/23/16 08:24 like symptoms etanercept [From Enbrel] Allergy severe flu Verified 11/23/16 08:24 like symptoms inhaler Allergy Rash/Hives Uncoded 11/23/16 07:44 ADHESIVE TAPE AdvReac Unknown Uncoded 11/23/16 07:44 Physical Exam Vitals: Vital Signs Temp Pulse Resp BP Pulse Ox 11/24/16 12:00 97.0 F L 96 20 134/83 90 L 11/24/16 07:56 97.7 F 98 22 127/98 91 L 11/24/16 07:55 92 18 11/24/16 04:00 97.3 F L 92 18 146/89 92 L 11/24/16 00:00 97.2 F L 97 18 145/103 93 L Intake and Output 11/24/16 11/24/16 11/25/16 14:59 22:59 06:59 Intake Total 236 Balance 236 Intake: Oral 236 Other: Voiding Method Toilet # Voids 1 milad pleasant 76-year-old male in no HEENT: Anicteric conjunctiva are pink and moist nasal mucosa grossly intact without significant lesions, there is no thrush. Neck: The neck is supple without significant lymphadenopathy or thyromegaly. Lungs: Good bilateral air entry without significant crackles or wheezing. There is no significant bronchial sounds. There is no egophony or dullness.ecreased breath sounds to the right Heart: Regular rate and rhythm with an audible S1-S2, no S3 no S4. There is no significant murmur click or rub, PMI was nondisplaced. Abdomen: Positive bowel sounds soft and nontender without palpable masses or organomegaly. There was no guarding or rebound. Extremities: The upper extremities have excellent pulses they are symmetric, no significant petechiae or telangiectasia. No splinter hemorrhages were noted. The lower extremities are free from significant edema. The peripheral pulses were 2+ and symmetric. Neuro: Awake alert oriented to person place and time. There are no acute new gross focal sensory motor deficits. on the right aspect of the lower chest is evidence of the chronic bronchopulmonary fistula minimal odor Results CBC & Chem 7: 11/23/16 08:00 11/23/16 08:00 Labs: Abnormal Lab Results - Last 24 Hours (Table) 11/24/16 11/24/16 Range/Units 05:55 05:55 APTT 45.2 H (22.0-30.0) sec HDL Cholesterol 64 H (40-60) mg/dL Laboratory Results WBC 6.6 k/uL (3.8-10.6) 11/23/16 08:00 RBC 4.21 m/uL (4.30-5.90) L 11/23/16 08:00 Hgb 13.0 gm/dL (13.0-17.5) 11/23/16 08:00 Hct 40.7 % (39.0-53.0) 11/23/16 08:00 MCV 96.8 fL (80.0-100.0) 11/23/16 08:00 MCH 30.8 pg (25.0-35.0) 11/23/16 08:00 MCHC 31.8 g/dL (31.0-37.0) 11/23/16 08:00 RDW 16.2 % (11.5-15.5) H 11/23/16 08:00 Plt Count 253 k/uL (150-450) 11/23/16 08:00 Neutrophils % 73 % 11/23/16 08:00 Lymphocytes % 12 % 11/23/16 08:00 Monocytes % 10 % 11/23/16 08:00 Eosinophils % 2 % 11/23/16 08:00 Basophils % 0 % 11/23/16 08:00 Neutrophils # 4.8 k/uL (1.3-7.7) 11/23/16 08:00 Lymphocytes # 0.8 k/uL (1.0-4.8) L 11/23/16 08:00 Monocytes # 0.6 k/uL (0-1.0) 11/23/16 08:00 Eosinophils # 0.1 k/uL (0-0.7) 11/23/16 08:00 Basophils # 0.0 k/uL (0-0.2) 11/23/16 08:00 Hypochromasia Slight 11/23/16 08:00 Anisocytosis Slight 11/23/16 08:00 PT 9.8 sec (9.0-12.0) 11/23/16 08:00 INR 1.0 (<1.2) 11/23/16 08:00 APTT 45.2 sec (22.0-30.0) H 11/24/16 05:55 Sodium 142 mmol/L (137-145) 11/23/16 08:00 Potassium 4.2 mmol/L (3.5-5.1) 11/23/16 08:00 Chloride 104 mmol/L (98-107) 11/23/16 08:00 Carbon Dioxide 27 mmol/L (22-30) 11/23/16 08:00 Anion Gap 11 mmol/L 11/23/16 08:00 BUN 27 mg/dL (9-20) H 11/23/16 08:00 Creatinine 1.16 mg/dL (0.66-1.25) 11/23/16 08:00 Est GFR (MDRD) Af Amer >60 (>60 ml/min/1.73 sqM) 11/23/16 08:00 Est GFR (MDRD) Non-Af >60 (>60 ml/min/1.73 sqM) 11/23/16 08:00 Glucose 85 mg/dL (74-99) 11/23/16 08:00 Calcium 9.1 mg/dL (8.4-10.2) 11/23/16 08:00 Magnesium 2.1 mg/dL (1.6-2.3) 11/23/16 08:00 Total Bilirubin 0.4 mg/dL (0.2-1.3) 11/23/16 08:00 AST 30 U/L (17-59) 11/23/16 08:00 ALT 33 U/L (21-72) 11/23/16 08:00 Alkaline Phosphatase 82 U/L (38-126) 11/23/16 08:00 Total Creatine Kinase 103 U/L (55-170) 11/23/16 19:56 CK-MB (CK-2) 2.3 ng/mL (0.0-2.4) 11/23/16 19:56 CK-MB (CK-2) Rel Index 2.2 11/23/16 19:56 Troponin I 0.038 ng/mL (0.000-0.034) H* 11/23/16 19:56 Total Protein 6.3 g/dL (6.3-8.2) 11/23/16 08:00 Albumin 3.3 g/dL (3.5-5.0) L 11/23/16 08:00 Triglycerides 106 mg/dL (<150) 11/24/16 05:55 Cholesterol 147 mg/dL (<200) 11/24/16 05:55 LDL Cholesterol, Calc 62 mg/dL (0-99) 11/24/16 05:55 HDL Cholesterol 64 mg/dL (40-60) H 11/24/16 05:55 Urine Color Yellow 11/23/16 15:10 Urine Appearance Clear (Clear) 11/23/16 15:10 Urine pH 5.5 (5.0-8.0) 11/23/16 15:10 Ur Specific [place] 1.019 (1.001-1.035) 11/23/16 15:10 Urine Protein Trace (Negative) H 11/23/16 15:10 Urine Glucose (UA) Negative (Negative) 11/23/16 15:10 Urine Ketones Negative (Negative) 11/23/16 15:10 Urine Blood Negative (Negative) 11/23/16 15:10 Urine Nitrite Negative (Negative) 11/23/16 15:10 Urine Bilirubin Negative (Negative) 11/23/16 15:10 Urine Urobilinogen <2.0 mg/dL (<2.0) 11/23/16 15:10 Ur Leukocyte Esterase Large (Negative) H 11/23/16 15:10 Urine RBC 1 /hpf (0-5) 11/23/16 15:10 Urine WBC 17 /hpf (0-5) H 11/23/16 15:10 Urine WBC Clumps Rare /hpf (None) H 11/23/16 15:10 Ur Squamous Epith Cells <1 /hpf (0-4) 11/23/16 15:10 Urine Mucus Rare /hpf (None) H 11/23/16 15:10 Assessment and Plan (1) Chest pain Status: Acute (2) Pulmonary-cutaneous fistula Narrative/Plan: 76-year-old male who is an extensive past medical history. Is noted underwent a resection of a pulmonary nodule with concerns for malignancy several years ago. Fortunately no malignancy was found. However with his underlying asbestosis the lung tissue is of poor quality and there was difficulties at the time of surgery. Eventually there is evidence of a bronchopulmonary cutaneous fistula and despite surgical interventions including myocutaneous flap has remained open. It is a well granulated chronic fistula that is easily packed. The patient does have some difficulties with the skin around it from the metaphysics tape. A prescription is given for skin prep which should help with the skin irritation from the tape. Also a prescription is given for foam which can be placed over the opening to absorb the moderate drainage. Would like to see me office in the future to determine if we could packed the area with a woven Hydrofiber product and then possibly a DuoDERM to allow less frequent changes. The 's concerns about infection are well taken. Maneuvers are given so that the gauze that is used to pack the fistula is prepared fresh that every time, this could reduce the risk of potential infection. Status: Acute
== END 2016-11-24 15:07 | disposition home or self-care (01) | DRG 308 ==
LOC: EC 07:40 → 6SEL 09:36
PROVIDERS: ADMIT Internal Medicine; ATTEND Internal Medicine
DX: I48.0 Paroxysmal atrial fibrillation (principal); J86.0 Pyothorax with fistula; I25.110 Atherosclerotic heart disease of native coronary artery with unstable angina pectoris; J44.9 Chronic obstructive pulmonary disease, unspecified; M06.9 Rheumatoid arthritis, unspecified; I10 Essential (primary) hypertension; E78.5 Hyperlipidemia, unspecified; I48.1 Persistent atrial fibrillation; J61 Pneumoconiosis due to asbestos and other mineral fibers; R74.8 Abnormal levels of other serum enzymes; M05.10 Rheumatoid lung disease with rheumatoid arthritis of unspecified site; Z79.899 Other long term (current) drug therapy; Z79.52 Long term (current) use of systemic steroids; Z87.891 Personal history of nicotine dependence; Z95.5 Presence of coronary angioplasty implant and graft; Z88.8 Allergy status to other drugs, medicaments and biological substances; Z77.090 Contact with and (suspected) exposure to asbestos
CPT/HCPCS: 36415; 71020; 80053; 80061; 81001; 82550; 82553; 83036; 83735; 84439; 84443; 84484; 85025; 85610; 85730; 93005; 93306; 96365; 96376; 99291

== ENCOUNTER → 2017-06-12 | Outpatient (CLI) | payer MEDICARE, BC ==
[2017-06-12 08:16] LABS: ALT 21 U/L (21-72); AST 29 U/L (17-59); Albumin 3.6 g/dL (3.5-5.0); Alkaline Phosphatase 97 U/L (38-126); Anion Gap 9 mmol/L; Blood Urea Nitrogen 29 mg/dL (9-20); Calcium 9.4 mg/dL (8.4-10.2); Carbon Dioxide 33 mmol/L (22-30); Chloride 100 mmol/L (98-107); Cholesterol 211 mg/dL (<200); Glucose 72 mg/dL (74-99); HDL Cholesterol 69 mg/dL (40-60); LDL Cholesterol,Calculated 118 mg/dL (0-99); Potassium 4.2 mmol/L (3.5-5.1); Sodium 142 mmol/L (137-145); Total Bilirubin 0.5 mg/dL (0.2-1.3); Total Protein 6.3 g/dL (6.3-8.2); Triglycerides 120 mg/dL (<150)
== END | disposition home or self-care (01) ==
LOC: LABWHC1 07:22
PROVIDERS: ATTEND Internal Medicine Interventional Cardiology
DX: E78.2 Mixed hyperlipidemia (principal)
CPT/HCPCS: 36415; 80053; 80061

== ENCOUNTER → 2017-09-02 | Outpatient (CLI) | payer MEDICARE, BC | END | disposition home or self-care (01) | LOC: RADXRMAIN 14:21 | PROVIDERS: ATTEND Physician Assistant Medical | DX: Z53.9 Procedure and treatment not carried out, unspecified reason (principal) ==

== ENCOUNTER → 2017-12-16 | Outpatient (CLI) | payer MEDICARE, BC ==
[2017-12-16 18:10] LABS: ALT 20 U/L (10-49); AST 30 U/L (14-35); Albumin/Globulin Ratio 1.86 (1.20-2.10); Alkaline Phosphatase 82 U/L (41-126); Calcium 9.2 mg/dL (8.7-10.3); Carbon Dioxide 33.7 mmol/L (21.6-31.8); Chloride 104 mmol/L (96-109); Cholesterol 185 mg/dL (0-200); Globulin 2.2 g/dL (2.1-3.7); Glucose 78 mg/dL (70-110); LDL Cholesterol,Calculated 85.8 mg/dL (0.0-131.0); Potassium 4.7 mmol/L (3.5-5.5); Sodium 140 mmol/L (135-145); Total Bilirubin 0.7 mg/dL (0.3-1.2); Total Protein 6.3 g/dL (6.2-8.2)
[2017-12-17 08:19] LABS: Digoxin <0.1
== END | disposition home or self-care (01) ==
LOC: LABWHC1 07:25
PROVIDERS: ATTEND Internal Medicine Interventional Cardiology
DX: E78.2 Mixed hyperlipidemia (principal); D48.0 Neoplasm of uncertain behavior of bone and articular cartilage
CPT/HCPCS: 36415; 80053; 80061; 80162